=== PATIENT | male | born 1965 | race Caucasian/White ===

== ENCOUNTER 2017-03-21 09:59 | Day surgery (SDC) | payer MEDICARE, MEDICAID ==
[2017-03-20 14:50] LABS: PARTIAL THROMBOPLASTIN TIME 23 SECONDS (22-32)
[2017-03-20 14:55] LABS: ALBUMIN 3.7 G/DL (3.4-5.0); ANION GAP 10 (8-16); BLOOD UREA NITROGEN 10 MG/DL (7-18); CALCIUM 9.2 MG/DL (8.5-10.1); CHLORIDE 98 MMOL/L (99-107); POTASSIUM 4.4 MMOL/L (3.5-5.1); SODIUM 132 MMOL/L (135-145); TOTAL CARBON DIOXIDE 24.4 MMOL/L (24-32); eGFR 78 ML/MIN
[2017-03-20 15:00] LABS: GLUCOSE 479 MG/DL (70-104)
[~2017-03-21] VITALS: Ht 177.8 cm; Wt 116.5 kg
[2017-03-21] VITALS (13 sets, daily range): BP systolic 124–150; BP diastolic 73–92
[~2017-03-21 09:59] MED LIST: ALLO100T PO; ASPI-612 PO; CANA300T PO; CLOP75TA35 PO; GLIM1TAB46 PO; LANTUS SQ; LOP25T PO; NITR4.1S2 TL
[2017-03-21] MEDS ORDERED: diphenhydrAMINE 25mg capsule PO PRN (10:30)
[2017-03-21] MEDS ORDERED: LORazepam 0.5 MG tablet PO PRN (10:30)
[2017-03-21] MEDS ORDERED: HUM7525 SQ (10:42)
[2017-03-21 11:18] LABS: BASOPHILS % (AUTO) 0.2 % (0-1); EOSINOPHILS # (AUTO) 0.1 X10'3 (0-0.9); EOSINOPHILS % (AUTO) 3.4 % (0-6); HEMATOCRIT 48.1 % (42.0-52.0); HEMOGLOBIN 16.6 g/dl (14.0-17.9); LYMPHOCYTES # (AUTO) 1.1 X10'3 (1.1-4.8); LYMPHOCYTES % (AUTO) 25.5 % (21-51); MEAN CORPUSCULAR HGB CONC 34.6 % (33.0-36.5); MEAN CORPUSCULAR VOLUME 92.3 FL (78-98); MEAN PLATELET VOLUME 7.3 FL (7.4-10.4); MONOCYTES # (AUTO) 0.3 X10'3 (0-0.9); MONOCYTES % (AUTO) 5.9 % (2-12); NEUTROPHILS # (AUTO) 2.8 X10'3 (1.8-7.7); PLATELET COUNT 157 X10'3 (140-440); RED BLOOD COUNT 5.21 X10'6 (4.70-6.10); RED CELL DISTRIBUTION WIDTH 14.3 % (11.5-14.5); WHITE BLOOD COUNT 4.3 X10'3 (4.5-11.0)
[2017-03-21] MEDS: normal saline 1000ml 1,000 ML IV SCH ×3 (11:18→15:28)
[2017-03-21] MEDS ORDERED: fentaNYL/PF 50MCG/1 ML 2ML syringe ONE (11:49)
[2017-03-21] MEDS ORDERED: iohexol 350 MG/ML 50ML vial IV ONE (11:50)
[2017-03-21] MEDS ORDERED: iohexol 350MG/ML 100ml bottle IV ONE ×2 (11:50→13:04)
[2017-03-21] MEDS ORDERED: heparin 1,000unit/ml 10ml vial 10 ML ONE (11:50)
[2017-03-21] MEDS ORDERED: midazolam 2 mg/2 ml injection ONE (11:50)
[2017-03-21] MEDS ORDERED: nitroGLYCERIN-Tridil 50MG/D5W 250 ML IV ONE (11:50)
[2017-03-21] MEDS ORDERED: LIDOcaine 1%/PF (10mg/ml) 5ml vial ONE (11:50)
[2017-03-21] MEDS ORDERED: insulin Lispro (HumaLOG) vial - multi-dose SQ SCH (14:45)
[2017-03-21] MEDS ORDERED: MESSAGE TO PHARMACY PO ONE (14:45)
[2017-03-21] MEDS ORDERED: dextrose 50%-water 50ml dispensing syringe IV PRN ×2 (14:45)
[2017-03-21] MEDS ORDERED: dextrose ORAL solution 15 GM/59 ML bottle PO PRN ×2 (14:45)
[2017-03-21] MEDS ORDERED: glucagon, human recombinant 1mg kit SUBCUT PRN (14:45)
[2017-03-21] MEDS ORDERED: nitroGLYCERIN 0.4mg SUBLingual tab SL PRN (14:50)
[2017-03-21] MEDS ORDERED: HYDROcodone/acetaminophen 5mg/325mg tablet PO PRN (14:50)
[2017-03-21] MEDS: HYDROcodone/acetaminophen 10/325mg tab PO PRN ×2 (15:23→20:04)
[2017-03-21] MEDS ORDERED: insulin glargine (Lantus) pen - multi-dose SQ SCH (21:00)
[2017-03-21] MEDS ORDERED: atorvastatin 20mg tablet PO SCH (21:00)
[2017-03-22] MEDS: HYDROcodone/acetaminophen 10/325mg tab PO PRN ×2 (00:54→05:21)
[2017-03-22 03:00] VITALS: BP 125/81
[2017-03-22 06:00] VITALS: BP 114/68
[2017-03-22 06:38] LABS: ALBUMIN 3.2 G/DL (3.4-5.0); ANION GAP 6 (8-16); BLOOD UREA NITROGEN 8 MG/DL (7-18); BUN/CREATININE RATIO 8.9 (5.4-32.0); CALCIUM 8.8 MG/DL (8.5-10.1); CHLORIDE 105 MMOL/L (99-107); CHOL/HDL RATIO 6.2 (0.00-4.99); CHOLESTEROL 191 MG/DL (0-200); GLUCOSE 119 MG/DL (70-104); HDL CHOLESTEROL 31 MG/DL (35-60); LDL CHOLESTEROL 82 MG/DL (50-100); POTASSIUM 3.7 MMOL/L (3.5-5.1); SODIUM 142 MMOL/L (135-145); TOTAL CARBON DIOXIDE 30.6 MMOL/L (24-32); TRIGLYCERIDES 540 MG/DL (20-135); eGFR 89 ML/MIN
[2017-03-22 06:53] LABS: BASOPHILS % (AUTO) 0.2 % (0-1); EOSINOPHILS # (AUTO) 0.2 X10'3 (0-0.9); EOSINOPHILS % (AUTO) 3.2 % (0-6); HEMATOCRIT 42.7 % (42.0-52.0); HEMOGLOBIN 15.1 g/dl (14.0-17.9); LYMPHOCYTES # (AUTO) 1.3 X10'3 (1.1-4.8); LYMPHOCYTES % (AUTO) 26.7 % (21-51); MEAN CORPUSCULAR HEMOGLOBIN 32.4 PG (27.0-31.0); MEAN CORPUSCULAR HGB CONC 35.4 % (33.0-36.5); MEAN CORPUSCULAR VOLUME 91.7 FL (78-98); MEAN PLATELET VOLUME 7.7 FL (7.4-10.4); MONOCYTES # (AUTO) 0.3 X10'3 (0-0.9); MONOCYTES % (AUTO) 6.4 % (2-12); NEUTROPHILS # (AUTO) 2.9 X10'3 (1.8-7.7); NEUTROPHILS % (AUTO) 63.5 % (42-75); PLATELET COUNT 140 X10'3 (140-440); RED BLOOD COUNT 4.65 X10'6 (4.70-6.10); WHITE BLOOD COUNT 4.7 X10'3 (4.5-11.0)
[2017-03-22] MEDS ORDERED: ISOS30TA6 PO (07:58)
[2017-03-22] MEDS ORDERED: ATOR20TA66 PO (07:58)
[2017-03-22] MEDS ORDERED: FENO145T25 PO (07:58)
[2017-03-22] MEDS ORDERED: METO25TA6 PO (07:58)
[2017-03-22] MEDS ORDERED: isosorbide mononitrate 30mg tab.SR.24H PO SCH (08:00)
[2017-03-22] MEDS ORDERED: aspirin 81mg tablet.DR PO SCH (08:00)
[2017-03-22] MEDS ORDERED: metoprolol tartrate 25mg tablet PO SCH (08:00)
[2017-03-22] MEDS ORDERED: fenofibrate 145mg tablet PO SCH (08:30)
== END 2017-03-22 09:58 | disposition home or self-care (01) ==
LOC: SSTAY O 09:59 → PCU 3S 14:46 → SSTAY O 03-22 09:58
PROVIDERS: ATTEND Internal Medicine Cardiovascular Disease
DX: I25.10 Atherosclerotic heart disease of native coronary artery without angina pectoris (principal); E11.51 Type 2 diabetes mellitus with diabetic peripheral angiopathy without gangrene; E78.4 Other hyperlipidemia; I73.89 Other specified peripheral vascular diseases; I25.82 Chronic total occlusion of coronary artery; I10 Essential (primary) hypertension; E66.9 Obesity, unspecified; Z95.5 Presence of coronary angioplasty implant and graft; Z79.82 Long term (current) use of aspirin; Z79.4 Long term (current) use of insulin; Z88.2 Allergy status to sulfonamides; Z88.1 Allergy status to other antibiotic agents; Z98.890 Other specified postprocedural states; Z88.8 Allergy status to other drugs, medicaments and biological substances; Z68.36 Body mass index [BMI] 36.0-36.9, adult
CPT/HCPCS: 36415; 80048; 80061; 82948; 83036; 85025; 85610; 85730; 87070; 93005; 93458; A6257; C1769; J1644; J2001; J2250; J3010; J3490; J7030; Q0163; Q9967; 99152; 99153; A4620; C1725; J1815